=== PATIENT | female | born 1985 | race Caucasian/White ===

== ENCOUNTER 2023-07-21 23:15 | Emergency (ER) | payer OTHER ==
[2023-07-21 23:31] VITALS: BP 133/88; O2SAT 96
--- NOTE | 2023-07-21 23:34 | ED Physician Documentation ---
PD HPI UPPER EXT INJURY - Stated complaint Stated Complaint: LT HAND LAC - Chief complaint Chief Complaint: Laceration - History obtained from History obtained from: Patient - History of Present Illness Location: Left, Finger (index) Type of injury: Blunt / blow (accidentally struck finger when chopping block of wood for kindling. Bleeding and pain at DIP dorsally. Noinjury to nailbed.) Where injury occurred: Home Timing - onset: How many hours ago (1), Today Timing - duration: Hours (1) Timing - details: Abrupt onset, Still present (still painful and with bleeding on ROM.) Worsened by: Moving, Palpating Associated symptoms: No: Weakness, Numbness Similar symptoms before: Has not had sx before Review of Systems Neurologic: denies: Focal weakness, Numbness PD PAST MEDICAL HISTORY - Past Medical History Past Medical History: No - Past Surgical History Past Surgical History: No - Present Medications Home Medications: Ambulatory Orders Medication Instructions Recorded Confirmed Amoxicillin 500 mg PO TID 7 Days tablet 10/18/13 Cetirizine HCl [Zyrtec] 10 mg PO DAILY #10 capsule 10/18/13 HYDROcod/ACETAM 5/325 [Vicodin 1 - 2 ea PO Q6H PRN #15 tablet 10/18/13 5/325] No Known Home Medications 10/18/13 10/18/13 predniSONE [Deltasone] 40 mg PO DAILY 5 Days tablet 10/18/13 - Allergies Allergies/Adverse Reactions: Allergies Allergy/AdvReac Type Severity Reaction Status Date / Time No Known Drug Allergies Allergy Verified 10/18/13 13:43 - Social History Does the pt smoke?: Yes Smoking Status: Current every day smoker Does the pt drink ETOH?: Yes Does the pt have substance abuse?: No - Immunizations Immunizations: TDAP >10years/unknown - POLST Patient has POLST: No PD ED PE NORMAL - Vitals Vital signs reviewed: Yes - General General: Alert and oriented X 3, No acute distress, Well developed/nourished - Derm Derm: Normal color, Warm and dry - Extremities Extremities: Other (left index finger at dorsal DIP not involving the nailbed with flap lac 2 cm down to fatty tissue. No injury to tendon, joint, nerves. Good color and cap refill distal. Normal full extension. ) - Neuro Neuro: Alert and oriented X 3, No motor deficit, No sensory deficit Results - Vitals Vitals: Oxygen O2 Source Room air - Rads (name of study) finger xray Relevant Findings:: Prelim report reviewed, EMP independent interpretation of t est (no fractures) Procedures - Laceration (location) left index finger dorsal Length in cm: 2 Wound type: Flap, Into subcut fat, Clean Neurovascular status: Sensory intact, Motor intact, Vascular intact Tendon involvement: Tendon intact Anesthesia: Lidocaine 1% Wound preparation: Irrigated copiously NS, Wound explored, To the base Skin layer closure: Nylon, Interrupted, Running, Size #-0 - enter number (4), Sutures - enter # (8) Other: Patient tolerated well, No complications, Neurovascular intact, Dressing applied, Tetanus UTD PD Medical Decision Making - ED course Complexity details: reviewed results (no fracture on finger xray. ), considered differential (struck finger with axe. No fractures. Able to move finger. Lac on dorsal DIP opens with flexion and is bleeding. Needs suturing. ), d/w patient Departure - Departure Disposition: 01 Home, Self Care Clinical Impression: Finger laceration Qualifiers: Encounter type: initial encounter Condition: Stable Record reviewed to determine appropriate education?: Yes Instructions: ED Laceration Hand Comments: It is okay to wash and shower. Clean off the wound twice a day with soap and water, or peroxide and water. Apply some antibiotic ointment to it to keep it moist. Also to watch for signs of infection such as purulence, redness or increasing pain. Return to your primary care or the ER at the specified time for suture removal. Suture removal 8 to 10 days. Gentle use of the finger as its healing so it will not be as stiff. Tylenol ibuprofen if needed for pains. Forms: PCP List Discharge Date/Time: 07/22/23 00:44
--- NOTE | 2023-07-22 00:16 | XRAY Report ---
PROCEDURE: Hand 3 View LT INDICATIONS: laceration left hand TECHNIQUE: 5 views of the hand(s) acquired. COMPARISON: None. FINDINGS: Bones: No fractures or dislocations. No suspicious bony lesions. Soft tissues: No suspicious soft tissue calcifications or masses. IMPRESSION: No acute bony abnormality. No fracture or foreign body seen. Reviewed by: Jassi Santiago MD on 07/22/2023 12:[address] [facility] Approved by: Jassi Santiago MD on 07/22/2023 12:[address] [facility] Station ID: [id number]
== END 2023-07-22 00:44 | disposition home or self-care (01) ==
LOC: ED 23:15
DX: S61.211A Laceration without foreign body of left index finger without damage to nail, initial encounter (principal); W45.8XXA Other foreign body or object entering through skin, initial encounter; Y93.H2 Activity, gardening and landscaping; F17.200 Nicotine dependence, unspecified, uncomplicated
CPT/HCPCS: 12001; 99283